=== PATIENT | male | born 1990 | race African-American/Black ===

== ENCOUNTER 2018-02-19 08:26 | Inpatient (IN) | payer OTHER ==
[~2018-02-19] VITALS: Ht 185.4 cm; Wt 82.6 kg
[~2018-02-19 08:26] MED LIST: LEVE1000 PO
[2018-02-19 08:29] VITALS: BP 110/66
--- NOTE | 2018-02-19 08:29 | NUR ---
Pt presents to ED via EMS for seizures. EMS reports that Pt's brother called 911 because Pt was in the back of his brothers truck when he started having seizures x1-2 min with loss of consoiusness. Pt has Hx of seizures. [facility] states Pt was postictal upon arriving to scene. Pt is cooperative to coomand and able to stand on own at bedside to produce urine. A&Ox4 upon arrival. No seizure activity at time of ER assessment. Pt is diaphoretic but skin color is appropirate to ethnicity. Addendum: 02/19/18 at 0857 by [facility] Pt presents to ED via EMS for seizures. EMS reports that Pt's brother called 911 because Pt was in the back of his brothers truck when he started having seizures x1-2 min with loss of consoiusness. Pt has Hx of seizures. [facility] states Pt was postictal upon arriving to scene. Pt is cooperative to coomand and able to stand on own at bedside to produce urine. A&Ox4 upon arrival. No seizure activity at time of ER assessment. Pt is diaphoretic but skin color is appropirate to ethnicity. VSS at this time. ER MD aware. Seizure precautions in [facility]. Continue to monitor.
--- NOTE | 2018-02-19 08:42 | NUR ---
Israel constantino in [facility] - 02/19/18 at 0843 by [facility] Patient being evaluated by DR JOSE at [facility].
[2018-02-19] MEDS ORDERED: KETOROLAC 30 MG/ML VIAL IVP ONE (09:45)
[2018-02-19] MEDS ORDERED: LORazepam 2 MG/ML VIAL IVP ONE ×2 (10:05→11:35)
[2018-02-19] MEDS ORDERED: LORazepam 2 MG/ML VIAL ONE ×2 (10:08→11:37)
[2018-02-19] MEDS ORDERED: levETIRAcetam 100 MG/ML VIAL IV ONE (10:40)
--- NOTE | 2018-02-19 11:21 | NUR ---
Patient being reevaluated by DR VILLATORO at bedside
[2018-02-19] MEDS: DEXT 5% / NACL 0.45% 1,000 ML IV SCH ×2 (11:47→21:47)
[2018-02-19 11:50] LABS: HEMATOCRIT 43.1 % (36-52); HEMOGLOBIN 13.2 g/dL (12.0-18.0); MEAN CORPUSCULAR HEMOGLOBIN 24 pg (27-31); MEAN CORPUSCULAR HGB CONC 31 g/dL (33-37); MEAN CORPUSCULAR VOLUME 77.7 fL (80-94); PLATELET COUNT (AUTO) 264 K/uL (140-450); RED BLOOD CELL COUNT(AUTO) 5.55 MIL/uL (4.20-6.10); RED CELL DISTRIBUTION WIDTH 13.8 % (11.6-13.7); WHITE BLOOD COUNT (AUTO) 5.5 K/uL (4.8-10.8)
[2018-02-19] MEDS ORDERED: ONDANSETRON 4 MG/2 ML VIAL IVP PRN (11:50)
[2018-02-19] MEDS ORDERED: LORazepam 2 MG/ML VIAL IVP PRN (11:50)
[2018-02-19] MEDS ORDERED: MORPHINE SULFATE 2 MG/ML SYR IVP PRN (11:50)
--- NOTE | 2018-02-19 12:18 | NUR ---
Pt had X2 seizures at ED. 1st lasted for 2 min. Second lasted for 1 min. Suction performed and at bedside. Seizure precautions remain in place. Continue to monitor.
--- NOTE | 2018-02-19 12:38 | NUR ---
RECEIVED PT FROM ER NURSE VIA LESLEE, LETHARGIC, NO SIGNS OF RESPIRATORY DISTRESS, PT HAS AN IV ON LEFT AC, PATENT, INTACT, FLUSHING WELL,SKIN IS INTACT, VITAL SIGNS TAKEN, ORIENTED PT TO THE ROOM, PT'S MOTHER AT BEDSIDE. DISCUSSED PLAN OF CARE WITH THE PT'S MOTHER, SHE VERBALIZED UNDERSTANDING, SAFETY/FALL/SEIZURE PRECAUTIONS ARE IN PLACE, CALL LIGHT WITHIN REACH. WILL CONTINUE TO MONITOR.
--- NOTE | 2018-02-19 12:40 | NUR ---
Report given and care transfered to Jennifer EMT room 124B
[2018-02-19 12:45] LABS: ANION GAP 16.7 (8-16); CARBON DIOXIDE 20.7 mmol/L (21-32); CREATININE 1.3 mg/dL (0.7-1.3); POTASSIUM 4.4 mmol/L (3.5-5.1)
[2018-02-19 12:49] LABS: ALBUMIN 4.3 g/dL (3.4-5.0); TOTAL BILIRUBIN 0.4 mg/dL (0.0-1.0)
[2018-02-19 14:27] LABS: EOSINOPHILS % (MANUAL) 1 % (0-4); LYMPHOCYTES % (MANUAL) 30 % (20-46); MONOCYTES % (MANUAL) 8 % (5-12)
--- NOTE | 2018-02-19 15:00 | NUR ---
PT IS LYING ON THE BED, SLEEPING, MOTHER IS ON THE BEDSIDE. SIDE RAILS UP AND CALL LIGHT WITHIN REACH. NO SIGNS OF DISCOMFORT NOTED ON THE PT AT THIS TIME. WILL CONTINUE TO MONITOR.
[2018-02-19 16:00] VITALS: BP 118/58
--- NOTE | 2018-02-19 17:30 | NUR ---
PT IS SLEEPING COMFORTABLY ON THE BED. SAFETY MEASURES DONE. SIDE RAILS ARE UP AND PADDED. CALL LIGHT WITHIN REACH. NO UNTOWARD SIGNS AND SYMPTOMS NOTED AT THIS TIME. WILL CONTINUE TO MONITOR.
--- NOTE | 2018-02-19 19:26 | NUR ---
ENDORSED PT TO OVEN TECHNICIAN NURSE FOR CONTINUITY OF CARE. PT IS LYING COMFORTABLY ON THE BED. NO UNTOWARD SIGNS AND SYMPTOMS NOTED.
--- NOTE | 2018-02-19 19:27 | NUR ---
RECD. SLEEPING COMFORTABLY IN BED, EASILY WAKES UP WHEN NAME CALLED. A/OX4, RESPIRATION EVEN AND UNLABORED. IV OF D51/2 NS AT 100 ML/HR INFUSING, RIGHT FOREARM G22. ON SEIZURE PRECAUTION, SIDE RAILS X2 WITH PADS. PLAN OF CARE FOR THE SHIFT DISCUSSED. INSTRUCTED TO CALL NURSE WHENEVER NEEDING HELP. VERBALIZED UNDERSTANDING. DENIES PAIN 0/10.
[2018-02-19 20:00] VITALS: BP 107/52
[2018-02-19] MEDS ORDERED: levETIRAcetam 1,000 MG in NACL 0.9% 100 ML IV SCH ×2 (21:00)
[2018-02-19] MEDS: levETIRAcetam 500 MG TAB PO SCH (21:29)
[2018-02-20] VITALS: BP 108/57
--- NOTE | 2018-02-20 | NUR ---
WENT OUT OF BED TWO TIMES WITHOUT CALLING NURSE, INSTRUCTED TO CALL FOR SAFETY PURPOSES AND HIS IV LINE WILL NOT BE MESSED UP. JUST NODS HEAD IN RESPONSE.
[2018-02-20] MEDS: DEXT 5% / NACL 0.45% 1,000 ML IV SCH ×2 (00:24→07:47)
[2018-02-20 04:00] VITALS: BP 103/60
[2018-02-20 06:52] LABS: BASOPHILS # (AUTO) 0.2 K/uL (0.00-0.22); BASOPHILS % (AUTO) 1.8 % (0.0-2.0); EOSINOPHILS # (AUTO) 0.1 K/uL (0-0.4); HEMATOCRIT 38.2 % (36-52); LYMPHOCYTES # (AUTO) 1.2 K/uL (2.0-11.5); MEAN CORPUSCULAR HEMOGLOBIN 24 pg (27-31); MEAN CORPUSCULAR HGB CONC 32 g/dL (33-37); MONOCYTES # (AUTO) 1.1 K/uL (0.8-1.0); MONOCYTES % (AUTO) 8.9 % (1.7-9.3); NEUTROPHILS # (AUTO) 9.4 K/uL (1.8-7.7); NEUTROPHILS % (AUTO) 78.3 % (42.2-75.2); PLATELET COUNT (AUTO) 217 K/uL (140-450); RED BLOOD CELL COUNT(AUTO) 4.96 MIL/uL (4.20-6.10); RED CELL DISTRIBUTION WIDTH 13.1 % (11.6-13.7)
--- NOTE | 2018-02-20 07:00 | NUR ---
NO SEIZURE NOTED DURING SHIFT. ABLE TO SLEEP WELL. WILL ENDORSE TO AM NURSE FOR CONTINUITY OF CARE.
--- NOTE | 2018-02-20 07:10 | NUR ---
PATIENT RESTING. EASILY AWAKENS WHEN SPOKEN TO. BREATH SOUNDS CLEAR. STATES NO SOB. O2 SAT99% ON ROOM AIR. NO RESPIRATORY DISTRESS NOTED AT THIS TIME.
--- NOTE | 2018-02-20 07:15 | NUR ---
RECEIVED REPORT FROM SOCK BOARDER NURSE AT BEDSIDE FOR CONT OF CARE. PATIENT RESTING WITH EYES CLOSED EASILY WOKEN. NO ACUTE DISTRESS NOTED. PATIENT RESPONDS APPROPRIATELY TO QUESTIONS. PATIENT WITH RFA 22G. CALL LIGHT WITHIN REACH. WILL CONT TO MONITOR.
[2018-02-20 08:00] VITALS: BP 121/70
--- NOTE | 2018-02-20 08:00 | NUR ---
PATIENT ALERT AND ABLE TO MAKE NEEDS KNOWN. NO ACUTE DISTRESS NOTED. PATIENT WITH SEIZURE PRECAUTIONS AND FALL PRECAUTIONS IMPLEMENTED. INITIAL ASSESSMENT PERFORMED. VS GATHERED AND STABLE. DENIES PAIN OR DISCOMFORT. SKIN INTACT. IV SITE TO RFA 22GWITH D51/2HS@100ML/HR. DISCUSSES PLAN OF CARE WITH PATIENT. PATIENT VERBALIZED UNDERSTANDING AND AGREEMENT. WILL CONT TO MONITOR PT.
[2018-02-20 08:32] LABS: ALBUMIN 3.8 g/dL (3.4-5.0); ANION GAP 14.7 (8-16); CARBON DIOXIDE 23.8 mmol/L (21-32); CREATININE 1.8 mg/dL (0.7-1.3); POTASSIUM 3.5 mmol/L (3.5-5.1); THYROID STIMULATING HORMONE 0.82 uIU/mL (0.34-3.74); TOTAL BILIRUBIN 0.5 mg/dL (0.0-1.0)
[2018-02-20 08:53] LABS: MAGNESIUM 2.7 mg/dL (1.8-2.4); PHOSPHORUS 4.5 mg/dL (2.5-4.9)
[2018-02-20] MEDS: levETIRAcetam 500 MG TAB PO SCH (08:57)
--- NOTE | 2018-02-20 09:00 | NUR ---
ADMINISTERED SCHEDULED MEDICATION ORDERED . TOLERATED WELL. NO SEIZURE ACTIVITY THIS MORNING. NO ACUTE DISTRESS. DENIES PAIN. WILL CONT TO MONITOR PT.
[2018-02-20] MEDS ORDERED: LORA0.5T6 PO (10:38)
[2018-02-20] MEDS ORDERED: LORA-476 PO (10:39)
--- NOTE | 2018-02-20 11:00 | NUR ---
INFORMED PATIENT OF DISCHARGE ORDER IN PLACE. PATIENT VERBALIZED UNDERSTANDING AND AGREEMENT. NO ACUTE DISTRESS NOTED. DENIES PAIN. CALL LIGHT WITHIN REACH. WILL CONT TO MONITOR.
--- NOTE | 2018-02-20 11:13 | NUR ---
PATIENT HAS BEEN SCREENED AND CATEGORIZED LOW NUTRITION RISK. PATIENT WILL BE SEEN WITHIN 7 DAYS OF ADMISSION. 02/26/[address]
--- NOTE | 2018-02-20 11:54 | NUR ---
CM NOTE INITIAL REVIEW FAXED TO [facility] [phone] [place] PH# [phone]
[2018-02-20 12:00] VITALS: BP 113/64
--- NOTE | 2018-02-20 12:00 | NUR ---
PT INFORMED OF FRIEND COMING FROM [place] TO PICK HIM UP FOR DISCHARGE. PATIENT WITHOUT SEIZURE ACTIVITY THIS AM.NO ACUTE DISTRESS NOTED.DENIES PAIN CALL LIGHT WITHIN REACH. WILL CONT TO MONITOR.
--- NOTE | 2018-02-20 12:45 | NUR ---
DISCUSSED DISCHARGE ORDERES WITH PATIENT. PATIENT VERBALIZED UNDERSTANDING AND AGREEMENT. PT WITH RX SCRIPTS IN POSSESSION. ALL BELONGINGS IN PT POSSESSION. IV SITE TO RFA REMOVED . TOLERATED WELL. LUMEN INTACT AND COMPLETE. ID BANDS REMOVED. PT TO INFORM US WHEN FRIEND ARRIVES TO PICK HIM UP. FRIEND TO ARRIVE SOON PER PT.
--- NOTE | 2018-02-20 13:00 | NUR ---
PT LEFT UNIT AMBULATING WITH FRIEND TO PROVIDE TRANSPORTATION. LEFT WITHOUT DIFFICULTIES.
== END 2018-02-20 13:00 | disposition home or self-care (01) | DRG 53 ==
LOC: MED 08:26 → MTU 12:07
PROVIDERS: ADMIT Hospitalist; ATTEND Hospitalist
DX: G40.909 Epilepsy, unspecified, not intractable, without status epilepticus (principal); E87.1 Hypo-osmolality and hyponatremia; F12.90 Cannabis use, unspecified, uncomplicated; E83.41 Hypermagnesemia; F17.210 Nicotine dependence, cigarettes, uncomplicated; Z79.899 Other long term (current) drug therapy; Z91.19 Patient's noncompliance with other medical treatment and regimen; Z91.14 Patient's other noncompliance with medication regimen
CPT/HCPCS: 36415; 70450; 80053; 83605; 83735; 84100; 84443; 85025; 87040; 87081; 96365; 96375; 96376; 99285; J1885; J1953; J2060

== ENCOUNTER 2018-03-02 12:19 | Emergency (ER) | payer OTHER ==
[~2018-03-02] VITALS: Ht 190.5 cm; Wt 78.0 kg
[~2018-03-02 12:19] MED LIST changes: +LORA-476 PO
--- NOTE | 2018-03-02 12:19 | NUR ---
Patient BIBA to bed 10.
[2018-03-02 12:24] VITALS: BP 118/59
--- NOTE | 2018-03-02 12:24 | NUR ---
27m biba with c/o seizure. per recycling crew supervisor report, witnessed by cousin, two clonic seizures lasting two mins approximately. No oral trauma or incontinence noted. Pt is aox4. gcs=15. No acute neuro deficits noted at this time. Pt reports he takes Keppra for seizures, and has been taking it as directed by doctor. Pt denies any pain at this time. Skin is warm/diaphoreitc/color appriopriate for ethnicity. RR are even and unlabored. No acute distress noted at this time. Er md francois aware of pt status. Will continue to monitor.
[2018-03-02] MEDS ORDERED: LORazepam 2 MG/ML VIAL IVP ONE ×2 (12:50→13:30)
[2018-03-02] MEDS ORDERED: LORazepam 2 MG/ML VIAL ONE ×2 (12:50→13:29)
[2018-03-02] MEDS ORDERED: levETIRAcetam 500 MG TAB PO ONE ×2 (12:50→16:30)
--- NOTE | 2018-03-02 12:50 | NUR ---
pt had a tonic clonic seizure lasting approx 2 mins long. er md francois by bedside. ativan given per verbal order. pt is post itcal at this time. will continue to monitor.
--- NOTE | 2018-03-02 13:10 | NUR ---
pt to ct via [place] with tele monitoring accompanied by technical research scientist and [place].
--- NOTE | 2018-03-02 13:28 | NUR ---
pt had tonic clonic seizure lasting approximately 1 min. er md francois and rn by bedside. new orders given.
--- NOTE | 2018-03-02 13:30 | NUR ---
pt had tonic clonic seizure lasting approx 1 minute. er md francois and rn by bedside. will continue to monitor.
[2018-03-02 13:36] LABS: BASOPHILS % (AUTO) 0.5 % (0.0-2.0); EOSINOPHILS % (AUTO) 0.4 % (0.0-4.0); HEMATOCRIT 37.6 % (36-52); HEMOGLOBIN 11.8 g/dL (12.0-18.0); LYMPHOCYTES # (AUTO) 0.9 K/uL (2.0-11.5); LYMPHOCYTES % (AUTO) 13.5 % (20.5-51.1); MEAN CORPUSCULAR HEMOGLOBIN 24 pg (27-31); MEAN CORPUSCULAR HGB CONC 31 g/dL (33-37); MONOCYTES # (AUTO) 0.4 K/uL (0.8-1.0); MONOCYTES % (AUTO) 5.9 % (1.7-9.3); NEUTROPHILS # (AUTO) 5.1 K/uL (1.8-7.7); NEUTROPHILS % (AUTO) 79.7 % (42.2-75.2); PLATELET COUNT (AUTO) 238 K/uL (140-450); RED BLOOD CELL COUNT(AUTO) 4.88 MIL/uL (4.20-6.10); RED CELL DISTRIBUTION WIDTH 14.4 % (11.6-13.7); WHITE BLOOD COUNT (AUTO) 6.4 K/uL (4.8-10.8)
[2018-03-02 13:45] LABS: ANION GAP 19.3 (8-16); CARBON DIOXIDE 22.7 mmol/L (21-32); CREATININE 1.3 mg/dL (0.7-1.3)
--- NOTE | 2018-03-02 13:50 | NUR ---
pt remains post ictal. vss. no acute distress. will continue to monitor.
--- NOTE | 2018-03-02 14:25 | NUR ---
pt remains post ictal. vss. no acute distress at this time. awaiting remaining lab results. will continue to monitor.
[2018-03-02 14:27] LABS: BARBITURATE, URINE NEG. ng/ml (NEG <=200); BENZODIAZEPINE, URINE NEG. ng/mL (NEG <=200); CANNABINOID, URINE POS. ng/mL (NEG <=50); COCAINE, URINE NEG. ng/mL (NEG <=300); OPIATE, URINE NEG. ng/mL (NEG <=2000); PHENCYCLIDINE SCREEN,URINE NEG. ng/mL (NEG <=25)
--- NOTE | 2018-03-02 14:45 | NUR ---
pt remains post ictal and resting with eyes close laying on left side. vss. no acute distress at this time. awaiting remaining lab results. will continue to monitor.
--- NOTE | 2018-03-02 15:30 | NUR ---
pt aox4 but remains drowsy. patient resting with eyes closed laying on right side. no acute distress noted. vss. will continue to monitor.
--- NOTE | 2018-03-02 15:39 | NUR ---
DR. GARCIA IN ROOM RE-EVALUATING PATIENT.
--- NOTE | 2018-03-02 16:11 | NUR ---
pt resting with eyes closed laying in gurney. no acute distress. vss. will continue to monitor.
[2018-03-02] MEDS ORDERED: levETIRAcetam 500 MG TAB ONE (16:27)
--- NOTE | 2018-03-02 17:45 | NUR ---
Patient discharged with v/s stable. Written and verbal after care instructions given and explained. Patient alert, oriented and verbalized understanding of instructions. Ambulatory with steady gait. Patient's cousin Zain providing transportation home. All questions addressed prior to discharge. ID band removed. Patient advised to follow up with PMD. Rx of Keppra given. Patient educated on indication of medication including possible reaction and side effects. Opportunity to ask questions provided and answered.
[2018-03-02 17:47] VITALS: BP 126/73
== END 2018-03-02 17:45 | disposition home or self-care (01) ==
LOC: MED 12:19
DX: G40.89 Other seizures (principal); Z79.899 Other long term (current) drug therapy
CPT/HCPCS: 36415; 70450; 71045; 80048; 80173; 80305; 83735; 85025; 93005; 96374; 96375; 99285; J2060; Q0092

== ENCOUNTER 2018-11-10 11:37 | Emergency (ER) | payer OTHER ==
[~2018-11-10] VITALS: Ht 175.3 cm; Wt 77.1 kg
[2018-11-10 11:38] VITALS: BP 116/74
[2018-11-10] MEDS ORDERED: ONDANSETRON 4 MG ODT PO ONE (12:55)
[2018-11-10] MEDS ORDERED: ONDANSETRON 4 MG/2 ML VIAL IVP ONE (13:00)
[2018-11-10] MEDS ORDERED: KETOROLAC 30 MG/ML VIAL IVP ONE (14:00)
[2018-11-10] MEDS ORDERED: NACL 0.9% 1,000 ML IV ONE (14:45)
[2018-11-10 16:12] VITALS: BP 122/85
== END 2018-11-10 16:13 | disposition home or self-care (01) ==
LOC: MED 11:37
DX: R56.9 Unspecified convulsions (principal); R11.2 Nausea with vomiting, unspecified; R51 Headache; F17.200 Nicotine dependence, unspecified, uncomplicated; Z79.899 Other long term (current) drug therapy
CPT/HCPCS: 82948; 96361; 96374; 96375; 99283; J1885; J2405; J7030

== ENCOUNTER 2019-08-01 11:33 | Inpatient (IN) | payer OTHER ==
[~2019-08-01] VITALS: Ht 182.9 cm; Wt 80.7 kg
[2019-08-01 11:43] VITALS: BP 107/54
[2019-08-01] MEDS ORDERED: MIDAZOLAM 2 MG/2 ML VIAL IM ONE (11:55)
[2019-08-01] MEDS ORDERED: MIDAZOLAM HCL/PF 5 MG/ML VIAL ONE (11:58)
[2019-08-01 12:41] LABS: BASOPHILS % (AUTO) 0.5 % (0.0-2.0); EOSINOPHILS % (AUTO) 0.3 % (0.0-4.0); HEMATOCRIT 34.2 % (36-52); HEMOGLOBIN 10.4 g/dL (12.0-18.0); LYMPHOCYTES # (AUTO) 1.2 K/uL (2.0-11.5); MEAN CORPUSCULAR HEMOGLOBIN 24 pg (27-31); MEAN CORPUSCULAR HGB CONC 31 g/dL (33-37); MONOCYTES # (AUTO) 0.5 K/uL (0.8-1.0); MONOCYTES % (AUTO) 8.9 % (1.7-9.3); NEUTROPHILS # (AUTO) 4.3 K/uL (1.8-7.7); NEUTROPHILS % (AUTO) 70.3 % (42.2-75.2); PLATELET COUNT (AUTO) 241 K/uL (140-450); RED BLOOD CELL COUNT(AUTO) 4.32 MIL/uL (4.20-6.10); RED CELL DISTRIBUTION WIDTH 15.5 % (11.6-13.7); WHITE BLOOD COUNT (AUTO) 6.1 K/uL (4.8-10.8)
[2019-08-01 12:47] LABS: ANION GAP 25.5 (8-16); CARBON DIOXIDE 15.8 mmol/L (21-32); CREATININE 1.2 mg/dL (0.7-1.3); POTASSIUM 4.3 mmol/L (3.5-5.1)
[2019-08-01 12:49] LABS: APPEARANCE,URINE SL CLOUDY (CLEAR); BARBITURATE, URINE NEG. ng/ml (NEG <=200); BENZODIAZEPINE, URINE POS. ng/mL (NEG <=200); BILIRUBIN,URINE NEGATIVE (NEGATIVE); BLOOD, URINE 2+ (NEGATIVE); CANNABINOID, URINE POS. ng/mL (NEG <=50); COCAINE, URINE NEG. ng/mL (NEG <=300); COLOR,URINE YELLOW (YELLOW); LEUKOCYTE ESTERASE ,URINE NEGATIVE (NEGATIVE); NITRITE, URINE NEGATIVE (NEGATIVE); OPIATE, URINE NEG. ng/mL (NEG <=2000); PH,URINE 5.5 (5.0-9.0); PHENCYCLIDINE SCREEN,URINE NEG. ng/mL (NEG <=25); UGLUCOSE NEGATIVE (NEGATIVE)
[2019-08-01 13:01] LABS: URINE AMORPHOUS URATE 1+ /HPF (None Seen)
[2019-08-01] MEDS ORDERED: VALPROATE SODIUM 500 MG in NACL 0.9% 100 ML IV ONE (15:35)
[2019-08-01] MEDS ORDERED: LORazepam 2 MG/ML VIAL ONE (15:39)
[2019-08-01] MEDS ORDERED: LORazepam 2 MG/ML VIAL IVP PRN (15:45)
[2019-08-01] MEDS ORDERED: VALPROATE SODIUM 500 MG/5 ML VIAL IV ONE (15:50)
[2019-08-01 16:20] VITALS: BP 105/54
[2019-08-01] MEDS ORDERED: ACETAMINOPHEN 325 MG TAB PO PRN (17:00)
[2019-08-01] MEDS ORDERED: PHENYTOIN 1,000 MG in NACL 0.9% 100 ML IV SCH (17:00)
[2019-08-01 20:00] VITALS: BP 110/60
[2019-08-01] MEDS: levETIRAcetam 1,000 MG in NACL 0.9% 100 ML IV SCH (21:08)
[2019-08-02 04:00] VITALS: BP 110/65
[2019-08-02] MEDS: levETIRAcetam 1,000 MG in NACL 0.9% 100 ML IV SCH (05:03)
[2019-08-02 08:00] VITALS: BP 96/50
[2019-08-02 08:25] LABS: BASOPHILS % (AUTO) 0.3 % (0.0-2.0); EOSINOPHILS % (AUTO) 0.5 % (0.0-4.0); HEMATOCRIT 34.8 % (36-52); HEMOGLOBIN 11.1 g/dL (12.0-18.0); LYMPHOCYTES # (AUTO) 1.3 K/uL (2.0-11.5); LYMPHOCYTES % (AUTO) 15.4 % (20.5-51.1); MEAN CORPUSCULAR HEMOGLOBIN 24 pg (27-31); MEAN CORPUSCULAR HGB CONC 32 g/dL (33-37); MONOCYTES # (AUTO) 0.6 K/uL (0.8-1.0); NEUTROPHILS # (AUTO) 6.5 K/uL (1.8-7.7); NEUTROPHILS % (AUTO) 76.8 % (42.2-75.2); PLATELET COUNT (AUTO) 241 K/uL (140-450); RED BLOOD CELL COUNT(AUTO) 4.58 MIL/uL (4.20-6.10); RED CELL DISTRIBUTION WIDTH 15.1 % (11.6-13.7); WHITE BLOOD COUNT (AUTO) 8.4 K/uL (4.8-10.8)
[2019-08-02 08:38] LABS: ALBUMIN 3.6 g/dL (3.4-5.0); ANION GAP 12.6 (8-16); CARBON DIOXIDE 28.2 mmol/L (21-32); MAGNESIUM 2.1 mg/dL (1.8-2.4); POTASSIUM 3.8 mmol/L (3.5-5.1); TOTAL BILIRUBIN 0.6 mg/dL (0.0-1.0)
[2019-08-02] MEDS ORDERED: PHENYTOIN 100 MG CAPER PO SCH ×2 (09:00→17:00)
[2019-08-02] MEDS ORDERED: PHEN100C3 PO (10:40)
[2019-08-02] MEDS ORDERED: LEVE750T3 PO (10:40)
== END 2019-08-02 11:05 | disposition home or self-care (01) | DRG 53 ==
LOC: MED 11:33 → MTU 14:56
PROVIDERS: ADMIT Internal Medicine Pulmonary Disease; ATTEND Internal Medicine Pulmonary Disease
DX: G40.909 Epilepsy, unspecified, not intractable, without status epilepticus (principal)
CPT/HCPCS: 36415; 70450; 71045; 80048; 80053; 80173; 80305; 81001; 83735; 85025; 87040; 87081; 87086; 93005; 96372; 99285; G0482; J1165; J1953; J2060; J2250; J3490